=== PATIENT | female | born 1970 | race Caucasian/White ===

== ENCOUNTER 2016-05-13 13:22 | Emergency (ER) | payer OTHER ==
[~2016-05-13] VITALS: Ht 172.7 cm; Wt 101.4 kg
[~2016-05-13 13:22] MED LIST: ACID CONTROL150 MG PO; ADALAT CC 30 MG30 MG PO; BENTYL20 MG PO; CITALOPRAM; CLONAZEPAM0.5 MG PO; DAILY VALUE1 EACH PO; DICYCLOMINE PO; DURAGESIC25 MCG TD; EFFEXOR XR75 MG PO; FENTANYL1 EAC5 TD; HYDROCHLOROT TAB 25M; HYDROCHLOROTHIA25 MG PO; HYDROCO/APAP TAB 5-3; KLONOPIN0.5 M1 PO; KLOR CON M; KLOR-CON 1010 ME1 PO; KLOR-CON M1010 MEQ PO; LEXAPRO10 MG PO; METOCLOPRAMIDE10 MG PO; METRONIDAZOLE250 MG PO; MOBIC15 MG PO; NASONEX17 GM BOTH NARES; NEXIUM; NEXIUM40 MG PO; NIFEDIPINE TAB 30M; PANTOPRAZOLE SO40 MG PO; PROMETHAZINE; PROTONIX40 MG PO; TRAMADOL HCL50 MG PO; TRAZODONE HCL50 MG PO; ZANAFLEX4 M1 PO; ZOFRAN4 MG PO
[2016-05-13 14:50] LABS: BASOPHIL COUNT 0.1 K/uL (0-0.1); EOSINOPHIL (%) 1.3 % (0-5); EOSINOPHIL COUNT 0.2 K/uL (0-0.3); HEMATOCRIT 38.3 % (36.0-46.0); IMMATURE GRANULOCYTE (%) 0.4 % (0.0-0.7); IMMATURE GRANULOCYTE COUNT 0.1 K/uL; INSTRUMENT ABS NEUTROPHIL CT 8.7 K/uL; LYMPHOCYTE COUNT 3.2 K/uL (1.0-2.8); MCH 29.6 PG (29.0-34.0); MCHC 33.9 G/DL (30.0-36.0); MCV 87.2 FL (83-99); MEAN PLAT.VOLUME 8.4 uM^3 (9.5-12.4); MONOCYTE (%) 6.1 % (3-12); MONOCYTE COUNT 0.8 K/uL (0-0.8); NEUTROPHIL (%) 66.8 % (45-76); NEUTROPHIL COUNT 8.7 K/uL (1.8-6.4); PLATELET COUNT 446 K/uL (156-360); RBC DIS.WIDTH-CV 11.9 % (11.8-14.6); RBC DIS.WIDTH-SD 38.3 % (39-53); RED BLOOD COUNT 4.39 M/uL (3.80-5.20)
[2016-05-13 14:58] LABS: PROTHROMBIN TIME 10.2 (9.2-11.2)
[2016-05-13 15:01] LABS: CHLORIDE 104 mEq/L (99-109); POTASSIUM 3.2 mEq/L (3.7-5.4); SODIUM 140 mEq/L (136-147)
[2016-05-13 15:03] LABS: GLUCOSE 91 mg/dL (70-99)
[2016-05-13 15:04] LABS: ANION GAP 12 MEQ/L (2-14)
[2016-05-13 15:07] LABS: GFR ESTIMATE (CALCULATED) > 59 mL/min/; UREA NITROGEN (BUN) 9 mg/dL (9-23)
[2016-05-13 15:15] LABS: QUANTITATIVE HCG < 4.0 MIU/ML
[2016-05-13 17:10] VITALS: BP 123/80
== END 2016-05-13 17:17 | disposition home or self-care (01) ==
LOC: EME 13:22
PROVIDERS: Emergency Medicine
DX: N93.9 Abnormal uterine and vaginal bleeding, unspecified (principal); R10.30 Lower abdominal pain, unspecified; R42 Dizziness and giddiness; I10 Essential (primary) hypertension; F17.200 Nicotine dependence, unspecified, uncomplicated
CPT/HCPCS: 76856; 80048; 84702; 85025; 85610; 86850; 86900; 86901; 99281; 99284